=== PATIENT | female | born 1970 | race Caucasian/White ===

== ENCOUNTER 2019-06-18 03:51 | Emergency (ER) | payer SELFPAY ==
--- NOTE | 2019-06-18 04:58 | Event Note ---
ED Screening Note Date of service: 06/18/19 Time: 05:01 ED Screening Note: 48-year-old female presents to ED via EMS. Patient was found sitting outside on the side of the street, in the rain. Patient states that she does not know her name. States the she cannot tell me where she lives. She does not know if she has any past medical history. Patient states, "I don't know. I cannot remember. I really don't know." Patient asked me how she got here, I told her that she was brought in by the ambulance. Patient has clear speech, no facial droop, full strength and sensation in all 4 extremities. Patient is able to ambulate, her gait is normal. She has no focal deficits. She only reports a mild headache. Patient follows commands. It is unclear if this is psych vs metabolic. Patient has normal vital signs. This initial assessment/diagnostic orders/clinical plan/treatment(s) is/are subject to change based on patients health status, clinical progression and re- assessment by fellow clinical providers in the ED. Further treatment and workup at subsequent clinical providers discretion. Patient/guardian urged not to elope from the ED as their condition may be serious if not clinically assessed and managed. Initial orders include: CT labs urine EKG
--- NOTE | 2019-06-18 05:05 | Cat Scan Report ---
CT head without contrast INDICATION : Altered Mental Status, complains of a headache.. TECHNIQUE: Axial imaging performed from the skull apex through the skull base without the use of con trast. All CT scans at this location are performed using CT dose reduction for ALARA by means of aut omated exposure control. COMPARISON: None FINDINGS: Parenchyma: No acute intracranial hemorrhage or parenchymal abnormality. Ventricles: Ventricles are normal in size and appear symmetric. Soft tissues: Soft tissues including the orbits appear normal. Bones: No acute osseous abnormality. Sinuses: Sinuses and mastoid air cells are clear. IMPRESSION: No acute abnormality. Signer Name: Percy Mon MD Signed: 06/18/2019 5:00 AM Workstation Name: [id number]
[2019-06-18 05:36] LABS: Basophils # (Auto) 0.1 K/mm3 (0.0-0.1); Basophils % (Auto) 0.8 % (0.0-1.8); Eosinophils # (Auto) 0.1 K/mm3 (0.0-0.4); Eosinophils % (Auto) 1.1 % (0.0-4.3); Hematocrit 37.6 % (30.3-42.9); Hemoglobin 12.3 gm/dl (10.1-14.3); Lymphocytes # (Auto) 1.8 K/mm3 (1.2-5.4); Lymphocytes % (Auto) 25.4 % (13.4-35.0); Mean Corpuscular HGB Conc 33 % (30-34); Mean Corpuscular Volume 82 fl (79-97); Monocytes # (Auto) 0.6 K/mm3 (0.0-0.8); Platelet Count 265 K/mm3 (140-440); Red Blood Count 4.56 M/mm3 (3.65-5.03); Red Cell Distribution Width 15.3 % (13.2-15.2)
[2019-06-18 05:56] LABS: BUN/Creatinine Ratio 10; Blood Urea Nitrogen 8 mg/dL (7-17); Calcium 9.1 mg/dL (8.4-10.2); Hemolysis Index 10
--- NOTE | 2019-06-18 07:06 | XRay Report ---
CHEST 1 VIEW INDICATION: cough. COMPARISON: None FINDINGS: Support devices: None. Heart: Within normal limits. Lungs/Pleura: No acute air space or interstitial disease. Additional findings: None. IMPRESSION: 1. No acute findings. Signer Name: Percy Mon MD Signed: 06/18/2019 7:01 AM Workstation Name: [id number]
--- NOTE | 2019-06-18 07:19 | Emergency Department Report ---
ED General Adult HPI - General Chief complaint: Altered Mental Status Stated complaint: AMS POSS MH Time Seen by Provider: 06/18/19 06:12 Source: patient, EMS Mode of arrival: Ambulatory Limitations: Altered Mental Status, Other - History of Present Illness Initial comments: This is a 48-year-old female who was found by the side of the road and transport ed via EMS. Per medical screening note: 48-year-old female presents to ED via EMS. Patient was found sitting outside on the side of the street, in the rain. Patient states that she does not know her name. States the she cannot tell me where she lives. She does not know if she has any past medical history. Patient states, "I don't know. I cannot remember. I really don't know." Patient asked me how she got here, I told her that she was brought in by the ambulance. Patient has clear speech, no facial droop, full strength and sensation in all 4 extremities. Patient is able to ambulate, her gait is normal. She has no focal deficits. She only reports a mild headache. Patient follows commands. It is unclear if this is psych vs metabolic. Patient has normal vital signs. The patient is able to speak coherently on my encounter. She states that she doesn't remember her name. She knows that she is in a hospital. She states she doesn't know where she came from. She states that she can't remember anything. She is not providing any additional information. She has no active complaints and is resting comfortably. -: unknown Severity scale (0 -10): 0 - Related Data Allergies Allergy/AdvReac Type Severity Reaction Status Date / Time No Known Allergies Allergy Unverified 06/18/19 04:01 ED Review of Systems ROS: Stated complaint: AMS POSS MH Other details as noted in HPI Comment: Unobtainable due to pts medical conditions (impaired by the patient's mental status. She reports no active complaint.) ED Past Medical Hx - Past Medical History Additional medical history: Unknown. No prior records. - Social History Smoking Status: Unknown if ever smoked Other Social History: Found on the street. No family available. ED Physical Exam - General Limitations: Other (memory deficit but coherent) General appearance: alert, in no apparent distress - Head Head exam: Present: atraumatic, normocephalic - Eye Eye exam: Present: normal appearance, PERRL, EOMI. Absent: scleral icterus - ENT ENT exam: Present: mucous membranes moist - Neck Neck exam: Present: normal inspection - Respiratory Respiratory exam: Present: normal lung sounds bilaterally. Absent: respiratory distress - Cardiovascular Cardiovascular Exam: Present: regular rate, normal rhythm. Absent: systolic murmur, diastolic murmur, rubs, gallop - GI/Abdominal GI/Abdominal exam: Present: soft, normal bowel sounds. Absent: distended, tenderness, guarding, rebound, rigid - Extremities Exam Extremities exam: Present: normal inspection, normal capillary refill. Absent: pedal edema, joint swelling, calf tenderness - Back Exam Back exam: Present: normal inspection - Neurological Exam Neurological exam: Present: alert, oriented X3, CN II-XII intact. Absent: motor sensory deficit - Psychiatric Psychiatric exam: Present: normal affect, normal mood - Skin Skin exam: Present: warm, dry, intact, normal color. Absent: rash ED Course Vital Signs 06/18/19 06/18/19 06/18/19 04:00 05:09 05:15 Temperature 97.7 F 97.6 F 97.6 F Pulse Rate 63 60 60 Respiratory 18 16 16 Rate Blood Pressure 135/78 132/68 Blood Pressure 132/78 [Right] O2 Sat by Pulse 98 100 100 Oximetry 06/18/19 07:20 Temperature Pulse Rate 64 Respiratory 12 Rate Blood Pressure Blood Pressure 117/73 [Right] O2 Sat by Pulse 100 Oximetry - Reevaluation(s) Reevaluation #1: Per the nurse, the patient has been seen by psychiatry and cleared. She is pending case management. She has become more coherent over time. 06/18/19 14:39 ED Medical Decision Making - Lab Data Result diagrams: 06/18/19 05:21 06/18/19 05:21 Laboratory Results - last 24 hr 06/18/19 06/18/19 06/18/19 05:21 05:21 05:21 WBC RBC Hgb Hct MCV MCH MCHC RDW Plt Count Lymph % (Auto) Carson % (Auto) Eos % (Auto) Baso % (Auto) Lymph # Carson # Eos # Baso # Seg Neutrophils % Seg Neutrophils # Sodium 144 Potassium 4.0 Chloride 105.1 Carbon Dioxide 24 Anion Gap 19 BUN 8 Creatinine 0.8 Estimated GFR > 60 BUN/Creatinine Ratio 10 Glucose 114 H Calcium 9.1 Salicylates < 0.3 L Acetaminophen < 5.0 L Plasma/Serum Alcohol 06/18/19 06/18/19 05:21 05:21 WBC 6.9 RBC 4.56 Hgb 12.3 Hct 37.6 MCV 82 MCH 27 L MCHC 33 RDW 15.3 H Plt Count 265 Lymph % (Auto) 25.4 Carson % (Auto) 8.0 H Eos % (Auto) 1.1 Baso % (Auto) 0.8 Lymph # 1.8 Carson # 0.6 Eos # 0.1 Baso # 0.1 Seg Neutrophils % 64.7 Seg Neutrophils # 4.5 Sodium Potassium Chloride Carbon Dioxide Anion Gap BUN Creatinine Estimated GFR BUN/Creatinine Ratio Glucose Calcium Salicylates Acetaminophen Plasma/Serum Alcohol < 0.01 Laboratory Results - last 24 hr 06/18/19 06/18/19 06/18/19 05:21 05:21 05:21 WBC RBC Hgb Hct MCV MCH MCHC RDW Plt Count Lymph % (Auto) [place] % (Auto) Eos % (Auto) Baso % (Auto) Lymph # Carson # Eos # Baso # Seg Neutrophils % Seg Neutrophils # Sodium 144 Potassium 4.0 Chloride 105.1 Carbon Dioxide 24 Anion Gap 19 BUN 8 Creatinine 0.8 Estimated GFR > 60 BUN/Creatinine Ratio 10 Glucose 114 H Calcium 9.1 Magnesium Total Bilirubin AST ALT Alkaline Phosphatase Ammonia Total Creatine Kinase CK-MB (CK-2) CK-MB (CK-2) Rel Index Total Protein Albumin Albumin/Globulin Ratio Urine Color Urine Turbidity Urine pH Ur Specific [place] Urine Protein Urine Glucose (UA) Urine Ketones Urine Blood Urine Nitrite Urine Bilirubin Urine Urobilinogen Ur Leukocyte Esterase Urine WBC (Auto) Urine RBC (Auto) U Epithel Cells (Auto) Urine Bacteria (Auto) Urine Mucus Salicylates < 0.3 L Urine Opiates Screen Urine Methadone Screen Acetaminophen < 5.0 L Ur Barbiturates Screen Ur Phencyclidine Scrn Ur Amphetamines Screen U Benzodiazepines Scrn Urine Cocaine Screen U Marijuana (THC) Screen Plasma/Serum Alcohol 06/18/19 06/18/19 06/18/19 05:21 05:21 06:46 WBC 6.9 RBC 4.56 Hgb 12.3 Hct 37.6 MCV 82 MCH 27 L MCHC 33 RDW 15.3 H Plt Count 265 Lymph % (Auto) 25.4 Carson % (Auto) 8.0 H Eos % (Auto) 1.1 Baso % (Auto) 0.8 Lymph # 1.8 Carson # 0.6 Eos # 0.1 Baso # 0.1 Seg Neutrophils % 64.7 Seg Neutrophils # 4.5 Sodium Potassium Chloride Carbon Dioxide Anion Gap BUN Creatinine Estimated GFR BUN/Creatinine Ratio Glucose Calcium Magnesium 2.30 Total Bilirubin 0.50 AST 17 ALT 19 Alkaline Phosphatase 75 Ammonia Total Creatine Kinase 105 CK-MB (CK-2) 1.7 CK-MB (CK-2) Rel Index 1.6 Total Protein 7.1 Albumin 3.8 L Albumin/Globulin Ratio 1.2 Urine Color Urine Turbidity Urine pH Ur Specific [place] Urine Protein Urine Glucose (UA) Urine Ketones Urine Blood Urine Nitrite Urine Bilirubin Urine Urobilinogen Ur Leukocyte Esterase Urine WBC (Auto) Urine RBC (Auto) U Epithel Cells (Auto) Urine Bacteria (Auto) Urine Mucus Salicylates Urine Opiates Screen Urine Methadone Screen Acetaminophen Ur Barbiturates Screen Ur Phencyclidine Scrn Ur Amphetamines Screen U Benzodiazepines Scrn Urine Cocaine Screen U Marijuana (THC) Screen Plasma/Serum Alcohol < 0.01 06/18/19 06/18/19 06/18/19 06:46 06:56 06:56 WBC RBC Hgb Hct MCV MCH MCHC RDW Plt Count Lymph % (Auto) Carson % (Auto) Eos % (Auto) Baso % (Auto) Lymph # Carson # Eos # Baso # Seg Neutrophils % Seg Neutrophils # Sodium Potassium Chloride Carbon Dioxide Anion Gap BUN Creatinine Estimated GFR BUN/Creatinine Ratio Glucose Calcium Magnesium Total Bilirubin AST ALT Alkaline Phosphatase Ammonia 26.0 Total Creatine Kinase CK-MB (CK-2) CK-MB (CK-2) Rel Index Total Protein Albumin Albumin/Globulin Ratio Urine Color Yellow Urine Turbidity Slightly-cloudy Urine pH 6.0 Ur Specific [place] 1.018 Urine Protein <15 mg/dl Urine Glucose (UA) Neg Urine Ketones Tr Urine Blood Mod Urine Nitrite Neg Urine Bilirubin Neg Urine Urobilinogen < 2.0 Ur Leukocyte Esterase Tr Urine WBC (Auto) 3.0 Urine RBC (Auto) 8.0 U Epithel Cells (Auto) 4.0 Urine Bacteria (Auto) 1+ Urine Mucus Few Salicylates Urine Opiates Screen Presumptive negative Urine Methadone Screen Presumptive negative Acetaminophen Ur Barbiturates Screen Presumptive negative Ur Phencyclidine Scrn Presumptive negative Ur Amphetamines Screen Presumptive negative U Benzodiazepines Scrn Presumptive negative Urine Cocaine Screen Presumptive negative U Marijuana (THC) Screen Presumptive negative Plasma/Serum Alcohol Laboratory Results - last 24 hr 06/18/19 06/18/19 06/18/19 05:21 05:21 05:21 WBC RBC Hgb Hct MCV MCH MCHC RDW Plt Count Lymph % (Auto) Carson % (Auto) Eos % (Auto) Baso % (Auto) Lymph # Carson # Eos # Baso # Seg Neutrophils % Seg Neutrophils # Sodium 144 Potassium 4.0 Chloride 105.1 Carbon Dioxide 24 Anion Gap 19 BUN 8 Creatinine 0.8 Estimated GFR > 60 BUN/Creatinine Ratio 10 Glucose 114 H Calcium 9.1 Magnesium Total Bilirubin Direct Bilirubin Indirect Bilirubin AST ALT Alkaline Phosphatase Ammonia Total Creatine Kinase CK-MB (CK-2) CK-MB (CK-2) Rel Index Total Protein Albumin Albumin/Globulin Ratio Urine Color Urine Turbidity Urine pH Ur Specific [place] Urine Protein Urine Glucose (UA) Urine Ketones Urine Blood Urine Nitrite Urine Bilirubin Urine Urobilinogen Ur Leukocyte Esterase Urine WBC (Auto) Urine RBC (Auto) U Epithel Cells (Auto) Urine Bacteria (Auto) Urine Mucus Salicylates < 0.3 L Urine Opiates Screen Urine Methadone Screen Acetaminophen < 5.0 L Ur Barbiturates Screen Ur Phencyclidine Scrn Ur Amphetamines Screen U Benzodiazepines Scrn Urine Cocaine Screen U Marijuana (THC) Screen Drugs of Abuse Note Plasma/Serum Alcohol 06/18/19 06/18/19 06/18/19 05:21 05:21 06:46 WBC 6.9 RBC 4.56 Hgb 12.3 Hct 37.6 MCV 82 MCH 27 L MCHC 33 RDW 15.3 H Plt Count 265 Lymph % (Auto) 25.4 Carson % (Auto) 8.0 H Eos % (Auto) 1.1 Baso % (Auto) 0.8 Lymph # 1.8 Carson # 0.6 Eos # 0.1 Baso # 0.1 Seg Neutrophils % 64.7 Seg Neutrophils # 4.5 Sodium Potassium Chloride Carbon Dioxide Anion Gap BUN Creatinine Estimated GFR BUN/Creatinine Ratio Glucose Calcium Magnesium 2.30 Total Bilirubin 0.50 Direct Bilirubin < 0.2 Indirect Bilirubin 0.3 AST 17 ALT 19 Alkaline Phosphatase 75 Ammonia Total Creatine Kinase 105 CK-MB (CK-2) 1.7 CK-MB (CK-2) Rel Index 1.6 Total Protein 7.1 Albumin 3.8 L Albumin/Globulin Ratio 1.2 Urine Color Urine Turbidity Urine pH Ur Specific [place] Urine Protein Urine Glucose (UA) Urine Ketones Urine Blood Urine Nitrite Urine Bilirubin Urine Urobilinogen Ur Leukocyte Esterase Urine WBC (Auto) Urine RBC (Auto) U Epithel Cells (Auto) Urine Bacteria (Auto) Urine Mucus Salicylates Urine Opiates Screen Urine Methadone Screen Acetaminophen Ur Barbiturates Screen Ur Phencyclidine Scrn Ur Amphetamines Screen U Benzodiazepines Scrn Urine Cocaine Screen U Marijuana (THC) Screen Drugs of Abuse Note Plasma/Serum Alcohol < 0.01 06/18/19 06/18/19 06/18/19 06:46 06:56 06:56 WBC RBC Hgb Hct MCV MCH MCHC RDW Plt Count Lymph % (Auto) Carson % (Auto) Eos % (Auto) Baso % (Auto) Lymph # Carson # Eos # Baso # Seg Neutrophils % Seg Neutrophils # Sodium Potassium Chloride Carbon Dioxide Anion Gap BUN Creatinine Estimated GFR BUN/Creatinine Ratio Glucose Calcium Magnesium Total Bilirubin Direct Bilirubin Indirect Bilirubin AST ALT Alkaline Phosphatase Ammonia 26.0 Total Creatine Kinase CK-MB (CK-2) CK-MB (CK-2) Rel Index Total Protein Albumin Albumin/Globulin Ratio Urine Color Yellow Urine Turbidity Slightly-cloudy Urine pH 6.0 Ur Specific [place] 1.018 Urine Protein <15 mg/dl Urine Glucose (UA) Neg Urine Ketones Tr Urine Blood Mod Urine Nitrite Neg Urine Bilirubin Neg Urine Urobilinogen < 2.0 Ur Leukocyte Esterase Tr Urine WBC (Auto) 3.0 Urine RBC (Auto) 8.0 U Epithel Cells (Auto) 4.0 Urine Bacteria (Auto) 1+ Urine Mucus Few Salicylates Urine Opiates Screen Presumptive negative Urine Methadone Screen Presumptive negative Acetaminophen Ur Barbiturates Screen Presumptive negative Ur Phencyclidine Scrn Presumptive negative Ur Amphetamines Screen Presumptive negative U Benzodiazepines Scrn Presumptive negative Urine Cocaine Screen Presumptive negative U Marijuana (THC) Screen Presumptive negative Drugs of Abuse Note Disclamer Plasma/Serum Alcohol - EKG Data -: EKG Interpreted by Me EKG shows normal: sinus rhythm, axis, intervals, QRS complexes, ST-T waves - EKG Data Interpretation: nonspecific ST-T wave hua Critical care attestation.: If time is entered above; I have spent that time in minutes in the direct care of this critically ill patient, excluding procedure time. ED Disposition Clinical Impression: Encounter for medical clearance for patient hold, Memory deficit, Case management patient Disposition: DC-01 TO HOME OR SELFCARE Is pt being admited?: No Does the pt Need Aspirin: No Condition: Stable Time of Disposition: 14:40
[2019-06-18 07:21] LABS: Bacteria,Urine 1+ /HPF (Negative); Bilirubin,Urine NEG (Negative); Blood,Urine MOD (Negative); Color,Urine Yellow (Yellow); Mucus,Urine FEW /HPF; Protein,Urine <15 mg/dL mg/dL (Negative); Urobilinogen,Urine < 2.0 mg/dL (<2.0)
[2019-06-18 07:35] LABS: Creatine Kinase MB 1.7 ng/mL (0.0-4.0)
[2019-06-18 07:36] LABS: Amphetamine Screen,Urine PRESUMPTIVE NEGATIVE; Benzodiazepines Screen,Urine PRESUMPTIVE NEGATIVE; Cannabinoid Screen,Urine PRESUMPTIVE NEGATIVE; Cocaine Screen,Urine PRESUMPTIVE NEGATIVE; Methadone Screen,Urine PRESUMPTIVE NEGATIVE; Opiate Screen,Urine PRESUMPTIVE NEGATIVE
[2019-06-18 07:40] LABS: Alanine Aminotransferase 19 units/L (7-56); Albumin 3.8 g/dL (3.9-5)
[2019-06-18 08:45] LABS: Bilirubin,Direct < 0.2 mg/dL (0-0.2)
--- NOTE | 2019-06-18 13:37 | Consultation ---
History of Present Illness - Reason for Consult Consult date: 06/18/19 Reason for consult: PSYCHIATRIC ASSESSMENT - History of Present Psychiatric Illness Ms Parsons is a 48-year-old female. The patient is in bed with eyes closed easily aroused with a tap. The patient is disoriented and confused, the patient does not know her name where she is from,what she is doing at the hospital. Per the patient nurse she was picked up on the street this morning's With impaired memory. When asked about suicidal or homicidal ideation patient's states, no to all questions. the patient kept saying I don't know what I'm doing here, I don't remember myself, I don't know my name, I know nothing.the patient appears frightened and confused. patient noted with possibly global amnesia syndrome and will likely regain her memory in a short time. PAST PSYCHIATRIC HISTORY: unable to assess PAST MEDICAL HISTORY: unable to assess Family Psychiatric History None reported or documented SOCIAL HISTORY unable to assess REVIEW OF SYSTEMS ROS cannot be reliably obtained from the patient due to her confusion and somnolence. MENTAL STATUS UNABLE TO ASSESS RECOMMENDATIONS MEDICATIONS: Risks, benefits and alternatives of medications discussed with the patient, questions answered and consent obtained from patient. PSYCHOTHERAPY: Supportive psychotherapy provided MEDICAL: Per primary team DELIRIUM PRECAUTIONS: Please re-orient patient frequently, keep lights on during the day, and minimize benzodiazepines and opiates as these medications could worsen patient's confusion. keep patient in a safe environment. TABLE WORKER PACKAGER: DISPOSITION: Per primary team; no indication for acute inpatient psychiatric hospitalization at this time. possibly global amnesia syndrome and will likely regain her memory in a short time. Keep patient in a safe environment. LEGAL STATUS: FOLLOW-UP: Will follow Medications and Allergies Allergies Allergy/AdvReac Type Severity Reaction Status Date / Time No Known Allergies Allergy Unverified 06/18/19 04:01 Mental Status Exam - Vital signs Last Vital Signs Temp 97.6 F 06/18/19 05:15 Pulse 64 06/18/19 07:20 Resp 12 06/18/19 07:20 BP 117/73 06/18/19 07:20 Pulse Ox 100 06/18/19 07:20 Results Result Diagrams: 06/18/19 05:21 06/18/19 05:21 Abnormal lab results 06/18/19 06/18/19 06/18/19 Range/Units 05:21 05:21 05:21 MCH (28-32) pg RDW (13.2-15.2) % [place] % (Auto) (0.0-7.3) % Glucose 114 H (65-100) mg/dL Albumin (3.9-5) g/dL Salicylates < 0.3 L (2.8-20.0) mg/dL Acetaminophen < 5.0 L (10.0-30.0) ug/mL 06/18/19 06/18/19 Range/Units 05:21 06:46 MCH 27 L (28-32) pg RDW 15.3 H (13.2-15.2) % [place] % (Auto) 8.0 H (0.0-7.3) % Glucose (65-100) mg/dL Albumin 3.8 L (3.9-5) g/dL Salicylates (2.8-20.0) mg/dL Acetaminophen (10.0-30.0) ug/mL All other labs normal.
--- NOTE | 2019-06-19 13:53 | Progress Note ---
Subjective - Reason for Consult Consult date: 06/19/19 Reason for consult: psychiatric assessment - Chief Complaint Chief complaint: In my interview with the patient this morning, the patient is disoriented on unable to answer questions. The patient still states that she doesn't know where she is. the patient remain disoriented. spoke to miss momin in [place] that help with housing assistance and knows her well, she states,i know her and she does have a psychiatric dx, i know she [place] with major depression and asperger syndrome. she reports that the patient has been homeless and she has a place approve for her until july., miss momin can be reach at [phone]. Review of Symptoms: MSE unable to assess RECOMMENDATIONS MEDICATIONS: Risks, benefits and alternatives of medications discussed with the patient, questions answered and consent obtained from patient. PSYCHOTHERAPY: Supportive psychotherapy provided MEDICAL: Per primary team DELIRIUM PRECAUTIONS: Please re-orient patient frequently, keep lights on during the day, and minimize benzodiazepines and opiates as these medications could worsen patient's confusion. TOOL DESIGNER: DISPOSITION: Per primary team; no indication for acute inpatient psychiatric hospitalization at this time LEGAL STATUS: FOLLOW-UP: Will follow Mental Status Exam - Vital signs Last Vital Signs Temp 97.5 F L 06/19/19 09:26 Pulse 73 06/19/19 09:26 Resp 20 06/19/19 09:26 BP 121/79 06/19/19 09:26 Pulse Ox 100 06/19/19 09:26
--- NOTE | 2019-06-20 14:36 | Progress Note ---
Subjective - Reason for Consult Consult date: 06/20/19 Reason for consult: confusion - Chief Complaint Chief complaint: During my interview with the patient, she is awake. Makes good eye contact. Dressed appropriately. She is calm and cooperative. Upon entering the room and addressing the patient by name. She does not respond. The tech then identifies the patient as correct. When asking the patient why she did acknowledge me when she was being greeted. The patient replied, "I don't know if that is my name. I can't remember by name." She then asks me if I "can look at notes and see what is wrong." She says "I don't remember anything that's going on with me. My name. Why I'm here. The date. Address. Family or President." She denies SI/HI or hallucinations, but then says, "I don't know. I'm so confused." She says she "does remember not sleeping well." She says "I feel scared. Uncertain. My mind is not right." REVIEW OF SYSTEMS Constitutional: Negative for weight loss ENT: Negative for stridor Respiratory: Negative for cough or hemoptysis All other systems reviewed and are negative MSE Appearance: Awake. Dressed appropriately. Good eye contact Behavior: Cooperative Mood: Affect: congruent Thought Process: Goal directed Speech: Normal tone and pace Thought Content Suicidal: Could not answer Homicidal: Could not answer Hallucinations: Denies Delusions: Yes Consciousness: Alert Cognition/Memory: Impaired Insight/Judgment: Limited RECOMMENDATIONS MEDICATIONS: -Risperidone 0.25mg po BID -Doxepin 10mg po QHS Risks, benefits and alternatives of medications discussed with the patient, questions answered and consent obtained from patient. PSYCHOTHERAPY: Supportive psychotherapy provided MEDICAL: Per primary team DELIRIUM PRECAUTIONS: Please re-orient patient frequently, keep lights on during the day, and minimize benzodiazepines and opiates as these medications could worsen patient's confusion. 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 Please transfer to an acute psychiatric facility once medically cleared. LEGAL STATUS: Will follow Mental Status Exam - Vital signs Last Vital Signs Temp 98.1 F 06/20/19 14:24 Pulse 83 06/20/19 14:24 Resp 16 06/20/19 14:24 BP 119/72 02/08/20 14:24 Pulse Ox 98 06/20/19 14:24
[2019-06-20] MEDS: risperiDONE 0.25 MG TAB PO SCH (15:29)
[2019-06-21] MEDS: risperiDONE 0.25 MG TAB PO SCH ×3 (10:20→22:21)
--- NOTE | 2019-06-21 13:33 | Progress Note ---
Subjective - Reason for Consult Consult date: 06/21/19 Reason for consult: disorientation - Chief Complaint Chief complaint: During my interview with the patient, she is awake. Makes good eye contact. Dressed appropriately. She is calm and cooperative. The patient is pleasant. When addressing her by name, she states "I don't know. You are still calling me that. But I don't know if that's my name." She is now able to recite the date, place and president because she "was told." The patient says "I feel lonely. I don't know if I have family." She then says "this makes me feel uncertain." She denies SI/HI or hallucinations of any kind. She says "it's none of that. But I can't answer questions about myself. There is something wrong." REVIEW OF SYSTEMS Constitutional: Negative for weight loss ENT: Negative for stridor Respiratory: Negative for cough or hemoptysis All other systems reviewed and are negative MSE Appearance: Awake. Dressed appropriately. Good eye contact Behavior: Cooperative Mood: "lonely" Affect: congruent Thought Process: Goal directed Speech: Normal tone and pace Thought Content Suicidal: Denies Homicidal: Denies Hallucinations: Denies Delusions: Yes Consciousness: Alert Cognition/Memory: Impaired Insight/Judgment: Limited RECOMMENDATIONS MEDICATIONS: Continue previously prescribed medications. Risks, benefits and alternatives of medications discussed with the patient, questions answered and consent obtained from patient. PSYCHOTHERAPY: Supportive psychotherapy provided MEDICAL: Per primary team DELIRIUM PRECAUTIONS: Please re-orient patient frequently, keep lights on during the day, and minimize benzodiazepines and opiates as these medications could worsen patient's confusion. MATERIAL CHASER: Defer to primary DISPOSITION: The patient meets the requirement for acute inpatient psychiatric hospitalization at this time. Please transfer to an acute psychiatric facility once medically cleared. Will follow until transferred Mental Status Exam - Vital signs Last Vital Signs Temp 97.9 F 06/21/19 08:26 Pulse 78 06/21/19 08:26 Resp 16 06/21/19 08:26 BP 106/61 06/21/19 08:26 Pulse Ox 98 06/21/19 08:26
[2019-06-21] MEDS: DOXEPIN 10 MG CAP PO SCH ×2 (22:22)
[2019-06-22] MEDS: risperiDONE 0.25 MG TAB PO SCH ×3 (10:47→21:54)
[2019-06-22 12:13] LABS: HCG Qualitative,Urine Negative (Negative)
--- NOTE | 2019-06-22 14:12 | Progress Note ---
Subjective - Reason for Consult Consult date: 06/22/19 Reason for consult: amnesia - Chief Complaint Chief complaint: During my interview with the patient, she is awake. She is dressed appropriately. She is reading a book. She does not acknowledge the me upon entering the room. I call her name twice, the patient still does not look up. I walk closer to the patient and she shifts her body somewhat to ignore me. When I tap the patient, she looks up. I inquire to the patient why was she not responding or acknowledging me, the patient replied, "ma'am, I did not know you were talking to me. I do not know that name you are calling." She then says, "I'm sorry, I don't know why, but I don't know who I am." The patient states she "does not remember anything about family or where I'm from." She says the "only thing I remember is that I'm [place]oroast[place]." The patient looks worried. When asking the patient was she worried about going home, she says "I don't know anything. I don't know what I feel." The patient denies SI/HI or hallucinations of any kind. She states "it's none of that. I just feel so uncertain." REVIEW OF SYSTEMS Constitutional: Negative for weight loss ENT: Negative for stridor Respiratory: Negative for cough or hemoptysis All other systems reviewed and are negative MSE Appearance: Awake. Dressed appropriately. Good eye contact Behavior: Cooperative Mood: "lonely" Affect: congruent Thought Process: Goal directed Speech: Normal tone and pace Thought Content Suicidal: Denies Homicidal: Denies Hallucinations: Denies Delusions: Yes Consciousness: Alert Cognition/Memory: Impaired Insight/Judgment: Limited RECOMMENDATIONS MEDICATIONS: Increased Risperidone 0.5mg po BID Risks, benefits and alternatives of medications discussed with the patient, questions answered and consent obtained from patient. PSYCHOTHERAPY: Supportive psychotherapy provided MEDICAL: Per primary team DELIRIUM PRECAUTIONS: Please re-orient patient frequently, keep lights on during the day, and minimize benzodiazepines and opiates as these medications could worsen patient's confusion. TAR MAN: Defer to primary DISPOSITION: The patient meets the requirement for acute inpatient psychiatric hospitalization at this time. Please transfer to an acute psychiatric facility once medically cleared. Will follow until transferred Mental Status Exam - Vital signs Last Vital Signs Temp 98.2 F 02/10/20 07:00 Pulse 85 06/22/19 07:00 Resp 18 06/22/19 07:00 BP 116/68 06/22/19 07:00 Pulse Ox 99 06/22/19 07:00
[2019-06-22] MEDS ORDERED: risperiDONE 0.25 MG TAB PO SCH (15:30)
[2019-06-22] MEDS: DIVALPROEX DR 250 MG TAB PO SCH (21:29)
[2019-06-22] MEDS: DOXEPIN 10 MG CAP PO SCH (21:55)
[2019-06-23] MEDS: DIVALPROEX DR 250 MG TAB PO SCH ×3 (09:00→20:51)
[2019-06-23] MEDS: risperiDONE 0.25 MG TAB PO SCH ×2 (10:00→21:54)
--- NOTE | 2019-06-23 16:40 | Progress Note ---
Subjective - Reason for Consult Consult date: 06/23/19 Reason for consult: psychiatric assessment - Chief Complaint Chief complaint: During my interview with the patient, she is awake. She is dressed appropriately. She is watching TV. The patient is noted disoriented ambulating in the hallway. The patient came up to this designer/writer and states, "I think the medication I am getting is making me too drowsy, can you look into that for me and I also need the patient advocate". When asked about suicidal or homicidal ideation patient said, I do not know I do not know what you are talking about". When patient was asked if she knew where she was patient said no ma'am I do not know who I am". Per patient report the only information she knows is the ones she is getting from watching the television. The patient report ma'am I do not know anything I do not know who I am I do not know where I am I was told I was in the [facility], I do not know anything". REVIEW OF SYSTEMS Constitutional: Negative for weight loss ENT: Negative for stridor Respiratory: Negative for cough or hemoptysis All other systems reviewed and are negative MSE Appearance: Awake. Dressed appropriately. Good eye contact Behavior: Cooperative Mood: "i dont know" Affect: congruent Thought Process: Goal directed Speech: Normal tone and pace Thought Content Suicidal: Denies Homicidal: Denies Hallucinations: Denies Delusions: Yes Consciousness: Alert Cognition/Memory: Impaired Insight/Judgment: Limited RECOMMENDATIONS MEDICATIONS: decrease doxepin - increase drowsiness Risks, benefits and alternatives of medications discussed with the patient, questions answered and consent obtained from patient. PSYCHOTHERAPY: Supportive psychotherapy provided MEDICAL: Per primary team DELIRIUM PRECAUTIONS: Please re-orient patient frequently, keep lights on during the day, and minimize benzodiazepines and opiates as these medications could worsen patient's confusion. SLIDING JOINT MAKER: Defer to primary DISPOSITION: The patient meets the requirement for acute inpatient psychiatric hospitalization at this time. Please transfer to an acute psychiatric facility once medically cleared. Will follow until transferred Mental Status Exam - Vital signs Last Vital Signs Temp 98.2 F 06/23/19 15:39 Pulse 89 06/23/19 15:39 Resp 18 06/23/19 15:39 BP 114/73 06/23/19 15:39 Pulse Ox 100 06/23/19 15:39
[2019-06-23] MEDS ORDERED: DOXEPIN 10 MG CAP PO SCH (16:41)
[2019-06-24] MEDS: DIVALPROEX DR 250 MG TAB PO SCH ×2 (09:21→14:59)
[2019-06-24] MEDS: risperiDONE 0.25 MG TAB PO SCH (10:05)
[2019-06-24 13:51] VITALS: BP 115/63
== END 2019-06-24 17:20 | disposition home or self-care (01) ==
LOC: EEVIPCON 03:51 → ED 03:51
DX: R51 Headache (principal); R41.82 Altered mental status, unspecified
CPT/HCPCS: 36415; 70450; 71045; 80048; 80076; 80307; 80320; 81001; 81025; 82140; 82550; 82553; 83735; 85025; 93005; 93010; G0480